=== PATIENT | male | born 1955 | race Caucasian/White ===

== ENCOUNTER 2024-07-05 12:11 | Day surgery (SDC) | payer MEDICARE ==
[~2024-07-05] VITALS: Ht 172.7 cm; Wt 84.2 kg
[~2024-07-05 12:11] MED LIST: NS 500 ML IV ONE
[2024-07-05] MEDS ORDERED: Sodium Bicarb 8.4% 1 MEQ/ML 50 ML Vial ONE (12:19)
[2024-07-05] MEDS ORDERED: NS 500 ML IV ONE (12:40)
[2024-07-05] MEDS ORDERED: propofoL 40 ML IV ONE (13:09)
[2024-07-05] MEDS ORDERED: Lidocaine HCl 2% 10 ML SDA ONE (13:56)
[2024-07-05] MEDS ORDERED: Ketorolac Tromethamine 30mg Vial ONE (14:04)
[2024-07-05] MEDS ORDERED: Dexamethasone Sod Phos 10 MG/ML 1ML VIAL ONE (14:04)
[2024-07-05] MEDS ORDERED: Ondansetron HCl 2 MG / ML 2ML Vial ONE (14:04)
--- NOTE | 2024-07-05 14:08 | NUR ---
07/05/24 [id number] OLIMPIA CORDOVA LOCAL ANESTHETIC INJECTED AT BEDSIDE POST BEDISIDE TIMEOUT WITH THIS RN, SURGEON, PT, AND PT . SURGEON INJECTED 8CC OF 8.4% HCO3, 1% LIDO W/EPI MIXTURE.
[2024-07-05 14:59] VITALS: BP 122/83
== END 2024-07-05 15:12 | disposition home or self-care (01) ==
LOC: ORSCSDS 12:11
DX: M71.30 Other bursal cyst, unspecified site (principal); M79.645 Pain in left finger(s); M79.89 Other specified soft tissue disorders
CPT/HCPCS: 88305; J1100; J1885; J2003; J2405; J2704; J7040